=== PATIENT | female | born 1955 | race Caucasian/White ===

== ENCOUNTER 2020-05-29 13:15 | Outpatient (CLI) | payer MEDICARE, SELFPAY ==
--- NOTE | 2020-05-29 13:23 | CT_ITS ---
WS: [id number] TECHNIQUE: Noncontrast CT right ankle with coronal and sagittal reformatted images. CLINICAL INFORMATION: ACHILLES TENDON PAIN AND SWELLING COMPARISON: None. DLP: 596.[address] scans at [facility] use at least one of these dose optimization techniques: automat ed exposure control; mA and/or kV adjustment per patient size (includes targeted exams where dose is matched to clinical indication); or iterative reconstruction. FINDINGS: Noncontrast CT right ankle. Moderate degenerative arthritis ankle mortise with subchondral cystic emmanuel nge at the tibiotalar articulation. Normal medial and lateral malleolus. No acute avulsion fractures. Mild soft tissue edema. Lateral malleolus is normal in appearance. Os trigonum. Degenerative arthrit is with subchondral cystic change involving the talocalcaneal articulations. Small plantar and Achill es calcaneal spurring. Cuboid appears normal. Normal tarsal bones. Normal navicular. Mild hypertrophi c changes at the dorsal talonavicular articulation. Distal fibula appears normal. Achilles appears in tact. Mild soft tissue edema lower leg. CT/CT ankle RT wo con* [id number] IMPRESSION: 1. No acute fractures. 2. Moderate degenerative arthritis at the ankle mortise with narrowing of the tibiotalar articulation. Mild subchondral cystic change involving the medial ta lar dome. 3. Degenerative narrowing with subchondral cystic change involving the talocal caneal articulations. 4. Small Achilles and plantar calcaneal spurs. Achilles appears intact. 5. Normal medial and lateral malleolus. No acute avulsion fractures.
== END 2020-05-29 13:16 | disposition home or self-care (01) ==
LOC: RADWPI 13:20
PROVIDERS: PCP Nurse Practitioner; Visit Provider Nurse Practitioner
DX: M76.61 Achilles tendinitis, right leg (principal); M13.871 Other specified arthritis, right ankle and foot
CPT/HCPCS: 73700

== ENCOUNTER 2021-01-05 10:58 | Outpatient (CLI) | payer MEDICARE, SELFPAY ==
--- NOTE | 2021-01-05 | CT_ITS ---
WS: [id number] Exam: CT lumbar spine wo con* [id number] Date/Time of Exam: 01/05/2021 11:17 AM Reason For Exam: POST LAMINECTOMY SYNDROME DLP: 1794.[address] scans at [facility] use at least one of these dose optimization techniques: automat ed exposure control; mA and/or kV adjustment per patient size (includes targeted exams where dose is matched to clinical indication); or iterative reconstruction. The lumbar spine is evaluated in the axial plane with coronal and sagittal reformatted images. 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 No other levels of significant disc bulging were identified. Grade 1 degenerativ e anterolisthesis of L4 on L5 noted. Neural foramina are patent at all levels. Degenerative vacuum di sc at L5-S1. Facet arthropathy at all levels. A neurostimulator pack is noted along the posterior sof t tissues with the leads extending cephalad in the posterior spinal canal. No fracture or bone destru ction seen. Paraspinal soft tissue structures are unremarkable. CT/CT lumbar spine wo con* [id number] IMPRESSION: 1. Moderately severe spinal canal stenosis at L5-S1 secondary to broad-based po sterior disc bulging. 2. No other levels of significant spinal canal stenosis were noted. No foramina l stenosis is seen. 3. Grade 1 degenerative spondylolisthesis of L4 on L5. Facet arthropathy at all levels. 4. Neurostimulator in place extending into the thoracic region.
== END 2021-01-05 10:59 | disposition home or self-care (01) ==
PROVIDERS: PCP Nurse Practitioner; Visit Provider Anesthesiology Pain Medicine
DX: M96.1 Postlaminectomy syndrome, not elsewhere classified (principal); M48.07 Spinal stenosis, lumbosacral region; M43.16 Spondylolisthesis, lumbar region
CPT/HCPCS: 72131

== ENCOUNTER 2023-07-22 06:00 | Outpatient (RCR) | payer MEDICARE, MEDICAID, SELFPAY | END 2023-08-07 23:59 | disposition home or self-care (01) | LOC: GPT 06:00 | PROVIDERS: Visit Provider Student in an Organized Health Care Education/Training Program | DX: Z47.1 Aftercare following joint replacement surgery (principal); Z96.651 Presence of right artificial knee joint | CPT/HCPCS: 97110; 97112; 97140; 97162 ==

== ENCOUNTER 2023-08-08 06:00 | Outpatient (RCR) | payer MEDICARE, MEDICAID, SELFPAY | END 2023-09-07 23:59 | disposition home or self-care (01) | LOC: GPT 06:00 | PROVIDERS: Visit Provider Student in an Organized Health Care Education/Training Program | DX: Z47.1 Aftercare following joint replacement surgery (principal); Z96.651 Presence of right artificial knee joint | CPT/HCPCS: 97110 ==

== ENCOUNTER 2023-12-24 09:40 | Outpatient (CLI) | payer MEDICARE, SELFPAY ==
--- NOTE | 2023-12-24 09:40 | MM_ITS ---
WS: [id number] SCREENING DIGITAL BREAST TOMOSYNTHESIS MAMMOGRAM WITH CAD HISTORY: SCREENING COMPARISON: 04/29/2022, 01/09/2009 Bilateral CC and MLO with tomosynthesis and synthetic mammography submitted. Computer aided detection analyzed. Breast composition: There are scattered areas of fibroglandular density. Seen on the LEFT MLO project ion are multiple calcifications towards the LEFT axillary tail and axilla. This is probably deodorant but needs to be proven. Benign lymph nodes within each breast are stable. No additional suspicious g rouping of calcifications. MM/[place] [id number] IMPRESSION: BI-RADS: 0-Incomplete: Need additional imaging evaluation FOLLOW UP: Need Additional Imaging Additional imaging of the LEFT breast is recommended. The LEFT MLO needs to be repeated. Deodorant artifact is suspected. After cleansing if this artifact langston s not resolve magnification view should be obtained.
== END 2023-12-24 09:41 | disposition home or self-care (01) ==
PROVIDERS: PCP Nurse Practitioner; Visit Provider Nurse Practitioner
DX: Z12.31 Encounter for screening mammogram for malignant neoplasm of breast (principal); R92.323 Mammographic fibroglandular density, bilateral breasts; R92.1 Mammographic calcification found on diagnostic imaging of breast
CPT/HCPCS: 77063; 77067

== ENCOUNTER 2024-01-06 06:00 | Outpatient (RCR) | payer MEDICARE, SELFPAY | END 2024-01-07 23:59 | disposition home or self-care (01) | LOC: GPT 06:00 | PROVIDERS: PCP Nurse Practitioner; Visit Provider Student in an Organized Health Care Education/Training Program | DX: M17.12 Unilateral primary osteoarthritis, left knee (principal) | CPT/HCPCS: 97161 ==

== ENCOUNTER 2024-01-08 06:00 | Outpatient (RCR) | payer MEDICARE, SELFPAY | END 2024-02-07 23:59 | disposition home or self-care (01) | LOC: GPT 06:00 | PROVIDERS: PCP Nurse Practitioner; Visit Provider Student in an Organized Health Care Education/Training Program | DX: M17.12 Unilateral primary osteoarthritis, left knee (principal) | CPT/HCPCS: 97110; 97140 ==